=== PATIENT | male | born 1960 | race Caucasian/White ===

== ENCOUNTER 2017-04-18 07:52 | Day surgery (SDC) | payer BC ==
[2017-04-18] MEDS ORDERED: BREVIBLOC 100 MG/10 ML IV ONE (07:53)
[2017-04-18] MEDS ORDERED: BRIDION 200MG/2ML IV ONE (07:53)
[2017-04-18] MEDS ORDERED: Quelicin Fliptop 200 MG/10 ML IJ ONE (07:53)
[2017-04-18] MEDS ORDERED: DIPRIVAN 200 MG/20 ML IV ONE (07:53)
[2017-04-18] MEDS ORDERED: Zemuron 100 MG/10 ML IJ ONE (07:53)
[2017-04-18] MEDS ORDERED: Versed 2 MG/2 ML Injection IV ONE (08:00)
[2017-04-18] MEDS ORDERED: SUBLIMAZE 250 MCG/5 ML IJ ONE (08:00)
[2017-04-18] MEDS ORDERED: Lactated Ringers 1,000 ML IV SCH (09:30)
[2017-04-18] MEDS ORDERED: CEFAZOLIN 2 GM-D5W BAG** 2 GM/50 ML ML IV SCH (09:30)
[2017-04-18] MEDS ORDERED: XYLOCAINE 1% HCL 20 ML MDV ONE (10:03)
[2017-04-18] MEDS ORDERED: Lactated Ringers 1,000 ML IV ONE (11:11)
--- NOTE | 2017-04-18 12:53 | OP ---
SURGERY DATE/TIME: 04/18/2017 1039 PREOPERATIVE DIAGNOSIS: Mass on the left foot. POSTOPERATIVE DIAGNOSIS: Large ganglion cyst left foot. PROCEDURES: 1) Removal of large ganglion cyst left foot. 2) Fluoroscopy per surgeon. 3) Short leg cast. SURGEON: Francisco Pelayo D.O. PARTS ORDER AND STOCK CLERK: None. ANESTHESIA: General per STEAM FINISHER. ESTIMATED BLOOD LOSS: Minimal. DESCRIPTION OF PROCEDURE: The patient is taken to the operative suite and placed in supine position. General anesthetic. All neurovascular areas well padded. Sterile prep and drape done to the leg. Tourniquet applied, inflated, exsanguinated to 350. Incision made over the dome of the skin. Elliptization of the mass was performed. A large expression of about 20 cc of ganglion cyst material was seen. The entry point from the mid foot joint line was then singed and cauterized and then closed over with Ethibond suture. Simple irrigation done and then Monocryl sutures and deysi in the skin. Short leg cast after tourniquet was disinflated. The patient is sent on to the recovery room in satisfactory condition.
[2017-04-18 14:39] VITALS: O2SAT 94
[2017-04-18 14:51] VITALS: PULSE 85
[2017-04-18 14:54] VITALS: BP 134/84
== END 2017-04-18 12:50 | disposition home or self-care (01) ==
LOC: SDC 07:52
PROVIDERS: ATTEND Orthopaedic Surgery
PROC: 0YBN0ZZ Excision of Left Foot, Open Approach (ICD-10-PCS; principal; 2017-04-18)
DX: M67.472 Ganglion, left ankle and foot (principal)
CPT/HCPCS: 01470; 36415; 88304; J0330; J0690; J2250; J2704; J3010